=== PATIENT | female | born 2000 | race Caucasian/White ===

== ENCOUNTER 2023-03-27 15:04 | Outpatient (CLI) | payer BC ==
--- NOTE | 2023-03-27 16:09 | US ---
EXAMINATION TYPE: US OB >= 14 wk fetus DATE OF EXAM: 03/27/2023 COMPARISON: None CLINICAL INDICATION: Female, 22 years old with history of Trauma to abdomen; Patient fell on abdomen today TECHNIQUE: Transabdominal (TA) GESTATIONAL AGE / DATING Physician Established: (33 weeks/3 days) EDC: 05/12/2023 Dates by LMP: LMP unknown Dates by First Scan: No previous here Dates by Current Scan: (32 weeks/5 days) EDC: 05/17/2023 SURVEY IUP: Single PLACENTA: Fundal/Posterior PREVIA: No Previa PIA: 13.7 cm Normal CERVICAL LENGTH (transabdominal: norm > 3.0cm): 3.5 cm BIOMETRY PRESENTATION: Vertex LIE: Longitudinal BPD: 8.1 cm 32 weeks / 5 days HC: 29.4 cm 32 weeks / 4 days AC: 27.8 cm 32 weeks / 0 days FL: 6.4 cm 33 weeks / 2 days ESTIMATED WEIGHT IN GRAMS: 1971 grams ESTIMATED WEIGHT IN LBS/OZ: 4 lbs. 6 oz. WEIGHT PERCENTAGE BASED ON ESTABLISHED DATES: 16% HC/AC: 1.06 Normal FL/AC: 23% Normal HEART RATE: 135 bpm RHYTHM: Normal Single live intrauterine gestation. IMPRESSION: Single live intrauterine gestation with estimated gestational age of 32 weeks 5 days and estimated du e date of 05/17/2023.
[2023-03-27 16:56] VITALS: BP 120/67; PULSE 108; RESP 18; TEMP 97.2
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
== END 2023-03-27 16:26 | disposition home or self-care (01) ==
LOC: FBPOP 15:04
PROVIDERS: ATTEND Obstetrics & Gynecology
DX: O9A.213 Injury, poisoning and certain other consequences of external causes complicating pregnancy, third trimester (principal); S39.91XA Unspecified injury of abdomen, initial encounter; W18.30XA Fall on same level, unspecified, initial encounter; Z3A.33 33 weeks gestation of pregnancy; Z91.013 Allergy to seafood; Z91.018 Allergy to other foods
CPT/HCPCS: 59025; 76805; 99213

== ENCOUNTER 2023-05-05 12:30 | Outpatient (CLI) | payer BC ==
[2023-05-05 13:42] VITALS: BP 126/66; PULSE 98; RESP 16; TEMP 97
--- NOTE | 2023-05-06 11:27 | P.MSEPDOC ---
Presenting Problems - Arrival Data Date of Arrival on Unit: 05/05/23 Time of Arrival on Unit: 12:30 Mode of Transport: Ambulatory - Complaint OB-Reason for Admission/Chief Complaint: Rule Out SROM Comment: leaking fluid on and off for several days, mucous this morning Medical History - Information : 2 Para: 1 Term: 1 : 0 Abortions: Spontaneous or Elective: 0 Number of Living Children: 1 - Gestational Age Gestational Age by MICHEAL (wks/days): 36 Weeks and 6 Days Review of Systems - Review of Systems Constitutional: No problems Breast: No problems ENT: No problems Cardiovascular: No problems Respiratory: No problems Gastrointestinal: No problems Genitourinary: No problems Musculoskeletal: No problems Neurological: No problems Skin: No problems Vital Signs - Temperature Temperature: 97.0 F Temperature Source: Oral - Pulse Right Brachial Pulse Rate: 98 Pulse Assessment Method: Automatic Cuff - Respirations Respiratory Rate: 16 O2 Sat by Pulse Oximetry: 99 - Blood Pressure Right Arm Blood Pressure: 126/66 Blood Pressure Mean: 86 Blood Pressure Source: Automatic Cuff Medical Screen Scoring - Cervical Exam Dilation (cm): 1.5 Effacement (%): 50 Membranes: Intact - Uterine Contractions Intensity: Absent - Assessment - Baby A Baseline FHR: 130 Heart Rate - NICHD Category: Category I (Normal) NST: Reactive Physician Notification - Physician Notified Physician Notified Date: 05/05/23 Physician Notified Time: 13:08 Physician: Amber Sena Order Received: Yes (discharge home) Maternal Triage Index - Maternal Triage Index Presenting for scheduled procedure w/no complaint: No - Stat/Priority 1 Stat Priority 1: No - Urgent/Priority 2 Urgent Priority 2: No - Prompt/Priority 3 Prompt Priority 3: Yes Criteria Met for Priority 3: rule out rupture of membranes, leaking on and off for several days with mucous discharge today Disposition - Disposition OB Disposition: Discharge to home, Written follow up instructions reviewed Discharge Date: 05/05/23 Discharge Time: 13:20 I agree with the RN Medical Screening Exam: Yes Case reviewed; plan agreed upon as documented in EMR&OBIX.: Yes Diagnosis: FALSE LABOR AT OR AFTER 37 COMPLETED WEEKS OF GESTATION
== END 2023-05-05 13:20 | disposition home or self-care (01) ==
LOC: FBPOP 12:30
PROVIDERS: ATTEND Obstetrics & Gynecology
DX: O47.03 False labor before 37 completed weeks of gestation, third trimester (principal); Z3A.36 36 weeks gestation of pregnancy; Z91.013 Allergy to seafood; Z91.018 Allergy to other foods
CPT/HCPCS: 59025; 84112; 99213

== ENCOUNTER 2023-05-06 05:32 | Inpatient (IN) | payer BC, OTHER ==
[2023-05-06] MEDS ORDERED: LIDOCAINE 0.5% (PF) 5 MG/ML (50 ML SDV) SQ PRN (07:13)
[2023-05-06] MEDS ORDERED: CARBOPROST TROMETHAMINE 250 MCG/ML 1 ML AMP IM PRN (07:13)
[2023-05-06] MEDS ORDERED: miSOPROStoL 200 MCG TAB PO PRN (07:13)
[2023-05-06] MEDS ORDERED: OXYTOCIN 10 UNIT/ML 1 ML VIAL IM PRN (07:13)
[2023-05-06] MEDS ORDERED: TERBUTALINE 1 MG/ML VIAL SQ PRN (07:13)
[2023-05-06] MEDS ORDERED: METHYLERGONOVINE 0.2 MG/ML 1 ML AMP IM PRN (07:13)
[2023-05-06] MEDS ORDERED: TRANEXAMIC 1,000 MG/100ML-NACL 1,000 MG in EMPTY BAG 1 BAG IV PRN (07:13)
[2023-05-06] MEDS ORDERED: OXYTOCIN 30 UNITS/500 ML NS 30 UNIT in SALINE 1 500ML.BAG IV SCH ×2 (07:15→12:30)
[2023-05-06 07:28] LABS: Basophils % (A) 0 %; Eosinophils # (A) 0.1 k/uL (0-0.7); Eosinophils % (A) 1 %; HCT 31.2 % (34.0-46.0); Hypochromasia Moderate; Lymphocytes # (A) 1.5 k/uL (1.0-4.8); Lymphocytes % (A) 17 %; MCH 24.1 pg (25.0-35.0); MCHC 32.1 g/dL (31.0-37.0); Mean Platelet Volume 7.7; Microcytosis Slight; Monocytes # (A) 0.6 k/uL (0-1.0); Monocytes % (A) 7 %; Neutrophils # (A) 6.2 k/uL (1.3-7.7); Neutrophils % (A) 73 %; Platelet Count 307 k/uL (150-450); RBC 4.16 m/uL (3.80-5.40); RDW 14.6 % (11.5-15.5); WBC 8.6 k/uL (3.8-10.6)
[2023-05-06] MEDS: LACTATED RINGERS 1,000 ML IV SCH ×2 (07:37→20:17)
--- NOTE | 2023-05-06 08:55 | P.HPOB ---
History of Present Illness H&P Date: 05/06/23 Chief Complaint: Spontaneous rupture of membranes This is a 22-year-old female 2 para 1 with an estimated date of confinement of 05/27/2023, estimated gestational age of 37-0/7 weeks who presented with complaints of spontaneous rupture membranes at approximately 1:30 AM this morning. She did begin feeling more contractions after that. course was essentially uncomplicated although she did have a large gap in care between 17 and 29 weeks. She did transfer care to md from a doctor in [place] at about 17 weeks. labs: Group B streptococcus-negative Blood type A-B+ Rubella-nonimmune Hemoglobin-10 RPR-nonreactive HIV-nonreactive 1 hour Glucola-125 Hepatitis C virus-nonreactive Antibody screen-negative Hepatitis B surface antigen-negative GC/chlamydia/Trichomonas-negative Obstetrical history: . History of 1 vaginal delivery at term with no complications. Gynecologic history: No history of sexually transmitted diseases Social history: She is single. 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 Review of Systems Constitutional: Denies chills, Denies fever Eyes: denies blurred vision, denies pain Ears, nose, mouth and throat: Denies headache, Denies sore throat Cardiovascular: Denies chest pain, Denies shortness of breath Respiratory: Denies cough Gastrointestinal: Reports abdominal pain (Contractions) Genitourinary: Reports pelvic pain, Reports Musculoskeletal: Reports low back pain, Reports myalgias Integumentary: Denies pruritus, Denies rash Neurological: Denies numbness, Denies weakness Psychiatric: Denies anxiety, Denies depression Past Medical History Past Medical History: No Reported History History of Any Multi-Drug Resistant Organisms: None Reported Past Surgical History: No Surgical Hx Reported Past Anesthesia/Blood Transfusion Reactions: No Reported Reaction Past Psychological History: No Psychological Hx Reported Smoking Status: Never smoker Past Alcohol Use History: None Reported Past Drug Use History: None Reported - Past Family History Mother Family Medical History: No Reported History Medications and Allergies Home Medications Medication Instructions Recorded Confirmed Type Vit No.179/Iron/Folic 1 each PO DAILY 05/06/23 05/06/23 History [ Tablet] Allergies Allergy/AdvReac Type Severity Reaction Status Date / Time shellfish derived [Shellfish] Allergy Anaphylaxis Verified 11/07/23 05:46 tree nut Allergy Anaphylaxis Verified 05/06/23 05:46 Exam Osteopathic Statement: *. No significant issues noted on an osteopathic structural exam other than those noted in the History and Physical/Consult. Vital Signs Temp Pulse Resp BP Pulse Ox 05/06/23 07:12 95.7 F L 87 17 97 05/06/23 05:44 95.3 F L 86 17 116/66 97 Intake and Output 05/05/23 05/06/23 05/06/23 22:59 06:59 14:59 Other: Weight 68.492 kg 68.492 kg HEENT: Within normal limits Heart: Regular rate and rhythm Lungs: Clear to auscultation bilaterally Abdomen: Cervix: Was initially 3 cm/70%/-2 station on admission with positive amnisure and clear fluid noted. Currently she is 3-1/2 cm/90%/-1 station with bulging bag palpated. Artificial rupture membranes is carried out with clear fluid noted. heart tones: Category 1 Contractions: Every 2-3 minutes currently Extremities: Negative Homans Results Result Diagrams: 05/06/23 06:50 Abnormal Lab Results - Last 24 Hours (Table) 05/06/23 Range/Units 06:50 Hgb 10.0 L (11.4-16.0) gm/dL Hct 31.2 L (34.0-46.0) % MCV 75.0 L (80.0-100.0) fL MCH 24.1 L (25.0-35.0) pg Assessment and Plan (1) 37 weeks gestation of Current Visit: Yes Status: Acute Code(s): Z3A.37 - 37 WEEKS GESTATION OF SNOMED Code(s): 65248905 Plan: Admission for active labor. Oxytocin augmentation of labor. Pain meds as desired. Expectant management.
--- NOTE | 2023-05-06 11:26 | P.PROBDLV ---
Vaginal Delivery Note - . Vaginal Delivery Note: The patient progressed to complete dilation after oxytocin augmentation of labor. She did use some nitrous oxide for pain control. Once reaching 9-1/2 she had uncontrolled urge to push and began pushing. Infant's head came to a crown and then delivered across the perineum followed by the anterior shoulder. Cord times one was reduced around the body with delivery. The remainder the infant delivered onto the and to the bed. Nose and mouth were bulb suctioned. Cord was clamped and cut and infant was taken to warmer for evaluation. A viable male infant is noted with scores of 8 at 1 minute and 9 at 5 minutes and weight of 6 pounds 11.6 ounces. Placenta delivered shortly thereafter, intact, with a three-vessel cord. Uterus contracted well after oxytocin was given and uterine massage was carried out. Inspection of the perineum revealed no perineal lacerations. Estimated blood loss is approximately 150 mL's. Both mother and infant are in stable condition.
--- NOTE | 2023-05-06 11:26 | P.MSEPDOC ---
Presenting Problems - Arrival Data Date of Arrival on Unit: 05/06/23 Time of Arrival on Unit: 06:12 Mode of Transport: Ambulatory - Complaint OB-Reason for Admission/Chief Complaint: Rule Out SROM Comment: Pt states she felt a warm gush at about 0130 on 05/06/2023 and feels like she has been leaking ever sinee, ctx every 5-10 min Medical History - Information : 2 Para: 1 Term: 1 : 0 Abortions: Spontaneous or Elective: 0 Number of Living Children: 1 - Gestational Age Gestational Age by MICHEAL (wks/days): 37 Weeks and 0 Days Review of Systems - Review of Systems Constitutional: No problems Breast: No problems ENT: No problems Cardiovascular: No problems Respiratory: No problems Gastrointestinal: No problems Genitourinary: No problems Musculoskeletal: No problems Neurological: No problems Skin: No problems Vital Signs - Temperature Temperature: 95.7 F Temperature Source: Temporal Artery Scan - Pulse Right Pulse Rate: 87 Pulse Assessment Method: Automatic Cuff - Respirations Respiratory Rate: 17 Oxygen Delivery Method: Room Air O2 Sat by Pulse Oximetry: 97 - Blood Pressure Right Arm Blood Pressure: 116/66 Blood Pressure Mean: 82 Blood Pressure Source: Automatic Cuff Medical Screen Scoring - Cervical Exam Dilation (cm): 3 Effacement (%): 40 Station: -3 Membranes: Ruptured - Uterine Contractions Frequency From (mins): 4 Frequency To (mins): 5 Duration From (seconds): 70 Duration To (seconds): 80 Resting: Soft to palpation - Assessment - Baby A Baseline FHR: 130 Heart Rate - NICHD Category: Category I (Normal) NST: Reactive Physician Notification - Physician Notified Physician Notified Date: 05/06/23 Physician Notified Time: 06:20 Physician: Amber Sena - Notification Comment Comment: admit to L&D Maternal Triage Index - Maternal Triage Index Presenting for scheduled procedure w/no complaint: No - Stat/Priority 1 Stat Priority 1: No - Urgent/Priority 2 Urgent Priority 2: Yes Provider Notified: Amber Sena Provider Notified Time: 06:20 Criteria Met for Priority 2: SROM Disposition - Disposition OB Disposition: Admit Transferred to:: [facility] I agree with the RN Medical Screening Exam: Yes Case reviewed; plan agreed upon as documented in EMR&OBIX.: Yes Diagnosis: ENCOUNTER FOR FULL-TERM UNCOMPLICATED DELIVERY
[2023-05-06] MEDS ORDERED: BENZOCAINE/MENTHOL SPRAY 1 GM/SPRAY AEROSOL TOPICAL PRN (12:20)
[2023-05-06] MEDS ORDERED: diphenhydrAMINE 25 MG CAP PO PRN (12:20)
[2023-05-06] MEDS ORDERED: SIMETHICONE 80 MG CHEWABLE PO PRN (12:20)
[2023-05-06] MEDS ORDERED: HYDROCORTISONE 2.5% RECTAL CREAM 30 GM TUBE RECTAL PRN (12:20)
[2023-05-06] MEDS ORDERED: MEASLES-MUMPS-RUBELLA VACC/PF 12,500 UNIT/0.5 ML VIAL SQ ONE (12:20)
[2023-05-06] MEDS ORDERED: diphenhydrAMINE 50 MG/ML 1 ML VIAL IVP PRN ×2 (12:20)
[2023-05-06] MEDS ORDERED: ACETAMINOPHEN TAB 325 MG TAB PO PRN (12:20)
[2023-05-06] MEDS ORDERED: diphenhydrAMINE 50 MG CAP PO PRN (12:20)
[2023-05-06] MEDS ORDERED: ZOLPIDEM 5 MG TAB PO PRN (12:20)
[2023-05-06] MEDS ORDERED: LANOLIN CREAM 5 GM TUBE TOPICAL PRN (12:20)
[2023-05-06] MEDS: IBUPROFEN 600 MG TAB PO PRN ×2 (12:31→18:52)
[2023-05-06] MEDS: SENNOSIDES-DOCUSATE SODIUM 1 EACH TAB PO SCH (20:34)
[2023-05-07 07:23] LABS: Basophils % (A) 0 %; Eosinophils # (A) 0.1 k/uL (0-0.7); Eosinophils % (A) 1 %; HCT 31.8 % (34.0-46.0); HGB 9.8 gm/dL (11.4-16.0); Hypochromasia Marked; Lymphocytes # (A) 2.2 k/uL (1.0-4.8); Lymphocytes % (A) 19 %; MCV 77.4 fL (80.0-100.0); Mean Platelet Volume 8.4; Monocytes # (A) 0.7 k/uL (0-1.0); Monocytes % (A) 6 %; Neutrophils # (A) 8.3 k/uL (1.3-7.7); Neutrophils % (A) 72 %; Platelet Count 360 k/uL (150-450); RDW 14.7 % (11.5-15.5); WBC 11.5 k/uL (3.8-10.6)
[2023-05-07 07:48] VITALS: BP 116/76; PULSE 77; RESP 14; TEMP 97.9
[2023-05-07] MEDS: IBUPROFEN 600 MG TAB PO PRN ×2 (08:36→14:10)
[2023-05-07] MEDS: SENNOSIDES-DOCUSATE SODIUM 1 EACH TAB PO SCH (08:38)
--- NOTE | 2023-05-07 08:59 | P.DS ---
Providers Date of admission: 05/06/23 06:10 Expected date of discharge: 05/07/23 Attending physician: Amber Sena Primary care physician: Stated None - Discharge Diagnosis(es) (1) 37 weeks gestation of Current Visit: Yes Status: Acute Hospital Course: This is a 22-year-old female 2 para 1 at 37-0/7 weeks who presented in active labor with spontaneous rupture membranes. She underwent oxytocin augmentation of labor and delivered vaginally a viable male on 05/06/2023 with scores of 8 at 1 minute and 9 at 5 minutes and weight of 6 pounds 11.6 ounces. Her course has been uncomplicated. Lochia is decreasing. Her pain is well-controlled. Vital signs are stable. Abdomen is soft with fundus firm and nontender. Extremities show negative Homans. Impression is status post vaginal delivery day #1. Plan is to discharge home today. She will be given a prescription for ibuprofen. She has a breast pump at home. She is advised to follow up in the office in 6 weeks for check. Routine instructions are given. She is advised to call the office if she has any further questions or concerns prior to her appointment time. Procedures: Oxytocin augmentation of labor Spontaneous vaginal delivery of a viable male on 05/06/2023 Patient Condition at Discharge: Stable Plan - Discharge Summary Discharge Rx Participant: Yes New Discharge Prescriptions: New Ibuprofen [Motrin] 600 mg PO Q6HR PRN #60 tab PRN Reason: Mild Pain (Scale 1 To 3) Continue Vit No.179/Iron/Folic [ Tablet] 1 each PO DAILY Discharge Medication List Vit No.179/Iron/Folic [ Tablet] 1 each PO DAILY 05/06/23 [History] Ibuprofen [Motrin] 600 mg PO Q6HR PRN #60 tab 05/07/23 [Rx] Follow up Appointment(s)/Referral(s): Amber Sena DO [Doctor of Osteopathic Medicine] - 06/18/23 11:30 am Activity/Diet/Wound Care/Special Instructions: Instructions 1. Do not begin any exercise program for 3 weeks. 2. Do not resume sexual relations for 3 weeks or longer if uncomfortable. 3. You may take tub baths or showers at any time. 4. You may use tampons if desired after 3 weeks. 5. Keep the area of episiotomy (stitches) clean and dry. 6. If you are not nursing, wear a good fitting, supportive bra during the day and limit fluid intake for at least 1 week to prevent breast engorgement. 7. Call the office, [phone], within the next week to make appointment for your 6 week checkup if it has not already been made. 8. Report any of the following occurrences to the doctor promptly: a. Heavy, excessive bleeding b. Chills, fever c. Burning or frequency of urination d. Pain or redness and breasts if nursing e. Increasing pain or swelling in episiotomy (stitches). In addition to the above instructions, the following additional should be followed: 1. No heavy lifting or straining (exercising) until after 6 week checkup. 2. Keep abdominal incision clean and dry: You may wear a dressing if more comfortable. 3. Make office appointment for 10 days after going home or as instructed by her doctor. Discharge Disposition: HOME SELF-CARE
== END 2023-05-07 15:00 | disposition home or self-care (01) | DRG 807 ==
LOC: FBPOP 05:32 → 4FBP 06:10
PROVIDERS: ADMIT Obstetrics & Gynecology; ATTEND Obstetrics & Gynecology
PROC: 10907ZC Drainage of Amniotic Fluid, Therapeutic from Products of Conception, Via Natural or Artificial Opening (ICD-10-PCS; principal; 2023-05-06)
PROC: 10E0XZZ Delivery of Products of Conception, External Approach (ICD-10-PCS; principal; 2023-05-06)
PROC: 3E0134Z Introduction of Serum, Toxoid and Vaccine into Subcutaneous Tissue, Percutaneous Approach (ICD-10-PCS; principal; 2023-05-06)
DX: O69.89X0 Labor and delivery complicated by other cord complications, not applicable or unspecified (principal); Z23 Encounter for immunization; Z3A.37 37 weeks gestation of pregnancy; Z37.0 Single live birth
CPT/HCPCS: 59025; 85025; 86850; 86900; 86901; 90707; 99213